=== PATIENT | female | born 1980 | race African-American/Black ===

== ENCOUNTER 2020-08-21 19:10 | Emergency (ER) | payer OTHER ==
[2020-08-21] MEDS ORDERED: ACETAMINOPHEN 500 MG TABLET (FP) PO ONE (19:34)
[2020-08-21] MEDS ORDERED: ACETAMINOPHEN 500 MG TABLET (FP) ONE (19:39)
[2020-08-21 19:44] VITALS: BP 103/64; PULSE 86; TEMP 98.7; BMI 22.1
[2020-08-21] MEDS ORDERED: KETOROLAC TROMETHAMINE 30 MG/1 ML VIAL IM ONE (21:22)
[2020-08-21] MEDS ORDERED: KETOROLAC TROMETHAMINE 30 MG/1 ML VIAL ONE ×2 (21:22)
== END 2020-08-21 21:38 | disposition home or self-care (01) ==
LOC: FER 19:10
PROC: 3E0233Z Introduction of Anti-inflammatory into Muscle, Percutaneous Approach (ICD-10-PCS; principal; 2020-08-21)
DX: S09.90XA Unspecified injury of head, initial encounter (principal); S09.93XA Unspecified injury of face, initial encounter
CPT/HCPCS: 70450-TC; 70486-TC; 71046-TC-FY; 72125-TC; 73030-TC-RT-FY; 73090-TC-LT-FY; 99285-25

== ENCOUNTER 2023-12-09 23:49 | Emergency (ER) | payer OTHER ==
[2023-12-10 00:05] VITALS: BP 122/82; PULSE 79; RESP 18; TEMP 99; BMI 25.1
[2023-12-10 01:14] LABS: BASO % 0.6 % (0-2.0); EOS % 0.5 % (0-4.5); HEMATOCRIT 38.9 % (32.4-45.2); HEMOGLOBIN 12.6 GM/dL (10.7-15.3); MCH 27.6 pg (25.7-33.7); MCHC 32.5 g/dl (32.0-36.0); MEAN PLT VOLUME 9.3 fl (7.5-11.1); NEUT % 58.9 % (42.8-82.8); PLATELET COUNT 211 10^3/uL (134-434); RBC 4.58 M/mm3 (3.60-5.2); RDW 15.2 % (11.6-15.6)
[2023-12-10 01:43] LABS: ALBUMIN 3.8 g/dl (3.4-5.0); CALCIUM 9.3 mg/dL (8.5-10.1)
[2023-12-10 01:46] LABS: CREATININE 0.8 mg/dL (0.55-1.3)
[2023-12-10 01:48] LABS: BILIRUBIN,TOTAL 0.4 mg/dL (0.2-1); TOT PROT 7.4 g/dl (6.4-8.2)
[2023-12-10 02:46] LABS: HIV INTERPRETATION NEGATIVE (NEGATIVE)
== END 2023-12-10 01:59 | disposition home or self-care (01) ==
LOC: FER 23:49
DX: R00.2 Palpitations (principal); R20.0 Anesthesia of skin; R20.2 Paresthesia of skin
CPT/HCPCS: 36415; 80053; 85025; 86803; 87389; 93005; 99283-25